=== PATIENT | male | born 1940 | race Caucasian/White ===

== ENCOUNTER 2017-11-24 14:35 | Emergency (ER) | payer MEDICARE ==
[2017-11-24] MEDS ORDERED: IPRATROPIUM/ALBUTEROL (0.5MG/3MG) NEB INH ONE (15:06)
--- NOTE | 2017-11-24 15:10 | Emergency Department Record ---
History of Present Illness - General Chief complaint: Cold Stated complaint: SINUS/CHEST CONGESTION,COUGH, Time Seen by Provider: 11/24/17 15:06 Source: Patient Mode of Arrival: Ambulatory Limitations: No limitations - History of Present Illness Initial comments: 77 yo male presents to ED for evaluation of cough and congestion symptoms for the past 1.5 weeks. Patient reports low-grade temperature yesterday, denies heart or lung problems at his baseline. Patient denies chest pain symptoms but does report "sore ribs from coughing". MD complaint: Other (cough) Onset/Timin -: Week(s) Severity: Moderate Quality: Aching Consistency: Constant Improves with: Cold therapy Worsens with: None Associated Symptoms: Cough, Rhinorrhea - Related Data Home Medications Medication Instructions Recorded Confirmed Last Taken Acetaminophen [Tylenol Arthritis] 650 mg PO DAILY 11/24/17 11/24/17 11/24/17 Amlodipine Besylate [Norvasc] 2.5 mg PO DAILY 11/24/17 11/24/17 11/24/17 Aspirin [Adult Aspirin Regimen] 81 mg PO DAILY 11/24/17 11/24/17 11/24/17 Cholecalciferol (Vitamin D3) 1,000 unit PO DAILY 11/24/17 11/24/17 11/24/17 [Vitamin D3] Clopidogrel Bisulfate [Clopidogrel] 75 mg PO DAILY 11/24/17 11/24/17 11/24/17 Guaifen/Phenyleph/Acetaminophn 1 tab PO ASDIR 11/24/17 11/24/17 11/24/17 [Tylenol Sinus Severe Caplet] Simvastatin [Zocor] 20 mg PO DAILY 11/24/17 11/24/17 11/23/17 Ursodiol [Mateo] 250 mg PO ASDIR 11/24/17 11/24/17 11/24/17 Allergies Allergy/AdvReac Type Severity Reaction Status Date / Time No Known Drug Allergies Allergy Verified 11/24/17 14:52 Travel Screening - Travel/Exposure Within Last 30 Days Have you traveled within the last 30 days?: No - Travel/Exposure Within Last Year Have you traveled outside the [place] in the last year?: No - Additonal Travel Details Have you been exposed to anyone with a communicable illness?: No - Travel Symptoms Symptom Screening: None Review of Systems Constitutional: Reports: Fever. Denies: Chills, Malaise, Night sweats Eyes: Denies: Eye discharge, Eye pain ENT: Reports: Congestion. Denies: Ear pain, Epistaxis Respiratory: Reports: Cough. Denies: Dyspnea Cardiovascular: Denies: Dyspnea on exertion, Edema, Palpitations Endocrine: Denies: Fatigue, Heat or cold intolerance Gastrointestinal: Denies: Abdominal pain, Nausea, Vomiting Genitourinary: Denies: Incontinence, Retention Musculoskeletal: Denies: Arthralgia, Back pain, Gout, Joint swelling Skin: Denies: Bruising, Change in color Neurological: Denies: Abnormal gait, Confusion, Headache, Seizure Psychiatric: Denies: Anxiety Hematological/Lymphatic: Denies: Anemia, Blood Clots Past Medical History - SOCIAL HISTORY Smoking Status: Never smoker Alcohol Use: None Drug Use: None - RESPIRATORY Hx Respiratory Disorders: No - CARDIOVASCULAR Hx Cardio Disorders: Yes Hx Cardiac Cath: Yes Hx Pacemaker/Defib: Yes - NEURO Hx Neuro Disorders: Yes Hx CVA: Yes (2006) - GI Hx GI Disorders: No - Hx Genitourinary Disorders: No - ENDOCRINE Hx Endocrine Disorders: No - MUSCULOSKELETAL Hx Musculoskeletal Disorders: Yes Hx Arthritis: Yes - PSYCH Hx Psych Problems: No - HEMATOLOGY/ONCOLOGY Hx Hematology/Oncology Disorders: No Family Medical History Any Significant Family History?: No Physical Exam - General General Appearance: Alert, Oriented x3, Cooperative, Moderate distress Limitations: No limitations - Head Head exam: Atraumatic, Normocephalic, Normal inspection Head exam detail: negative: Abrasion, Contusion, Chandler's sign, General tenderness, Hematoma, Laceration - Eye Eye exam: Normal appearance. negative: Conjunctival injection, Periorbital swelling, Periorbital tenderness, Scleral icterus - ENT Ear exam: negative: Auricular hematoma, Auricular trauma Nasal Exam: negative: Active bleeding, Discharge, Dried blood, Foreign body Mouth exam: negative: Drooling, Laceration, Muffled voice, Tongue elevation - Neck Neck exam: Normal inspection. negative: Meningismus, Tenderness - Respiratory Respiratory exam: Decreased breath sounds. negative: Respiratory distress, Rhonchi, Stridor - Cardiovascular Cardiovascular Exam: Regular rate, Normal rhythm, Normal heart sounds - GI/Abdominal GI/Abdominal exam: Soft. negative: Rebound, Rigid, Tenderness - Rectal Rectal exam: Deferred - exam: Deferred - Extremities Extremities exam: Normal inspection. negative: Pedal edema, Tenderness - Back Back exam: Denies: CVA tenderness (R), CVA tenderness (L) - Neurological Neurological exam: Alert, Normal gait, Oriented X3 - Psychiatric Psychiatric exam: Normal affect, Normal mood - Skin Skin exam: Normal color. negative: Abrasion Type of lesion: negative: abrasion Course Vital Signs 11/24/17 14:59 Temperature 97.6 F Pulse Rate 80 Respiratory 14 Rate Blood Pressure 102/48 Pulse Ox 91 L - Reevaluation(s) Reevaluation #1: 11/24/17 15:58 CXR: Findings suspicious for bilateral lower lobe infiltrates. Zithromax and Rocephin ordered for treatment of CAP. 11/24/17 19:04 Reevaluation #2: 11/24/17 18:51 Labs were reviewed, will initiate transfer to [facility] for further evaluation. Case was Dr. Gill, will accept transfer for further evaluation. Medical Decision Making - Lab Data Result diagrams: 11/24/17 14:15 11/24/17 14:15 Disposition Disposition: Transfer Clinical Impression: Hypoxia CAP (community acquired pneumonia) Qualifiers: Laterality: unspecified laterality Qualified Code(s): J18.9 - Pneumonia, unspecified organism CRF (chronic renal failure) Qualifiers: Chronic kidney disease stage: stage 4 (severe) Qualified Code(s): N18.4 - Chronic kidney disease, stage 4 (severe) Disposition: Acute Care Hospital Transfer Transfer To: [facility] Reason For Transfer: ARF, CAP Accepting Physician: Bridget Time Discussed w/Accepting Physician: 18:55 Condition: (2) Stable Time of Disposition: 18:55 Quality - Quality Measures Quality Measures: N/A - Blood Pressure Screening Does Patient Have Any of the Following: Active Dx of HTN Blood Pressure Classification: Normal BP Reading Systolic Measurement: 104 Diastolic Measurement: 56 Screening for High Blood Pressure: Patient Exclusion, Hx of HTN [G9744]
[2017-11-24] MEDS ORDERED: CEFTRIAXONE SODIUM 1 GM in 0.9 % SODIUM CHLORIDE 100ML 100 ML IVPB ONE (15:55)
[2017-11-24] MEDS ORDERED: AZITHROMYCIN 500 MG in 0.9 % SODIUM CHLORIDE 250ML 250 ML IVPB ONE (15:55)
[2017-11-24] MEDS ORDERED: 0.9 % SODIUM CHLORIDE 1000ML 1,000 ML IV SCH (16:00)
[2017-11-24 16:33] LABS: BASO % 0.3 % (0-6); EOS % 0.3 % (0-6); HEMATOCRIT 39.8 % (42.0-52.0); LYMPH % 7.7 % (16-45); MEAN CELL VOLUME 91.1 fl (81-97); MEAN CORPUSCULAR HEMOGLOBIN 29.7 pg (27-33); MEAN CORPUSCULAR HGB CONC 32.7 g/dl (32-36); MEAN PLATELET VOLUME 12.6 fl (7.4-10.4); MONO % 5.7 % (0-9); RED BLOOD COUNT 4.37 M/uL (4.40-5.70); RED CELL DISTRIBUTION WIDTH 15.1 % (11.5-14.5); WHITE BLOOD COUNT W/O DIFF 11.8 K/uL (4.2-12.2)
[2017-11-24 16:42] LABS: BILIRUBIN,TOTAL 0.6 mg/dL (0.2-1.0); CREATININE 4.3 mg/dL (0.7-1.2)
[2017-11-24 16:43] LABS: TOTAL PROTEIN 8.5 g/dL (6.6-8.7)
[2017-11-24] MEDS ORDERED: URSODIOL 250 MG PO SCH (16:47)
[2017-11-24] MEDS ORDERED: IPRATROPIUM/ALBUTEROL (0.5MG/3MG) NEB INH PRN (16:47)
[2017-11-24] MEDS ORDERED: PROMETHAZINE W/CODEINE 10ML UD PO PRN (16:47)
[2017-11-24] MEDS ORDERED: ALBUTEROL SULFATE (0.083%) 2.5 MG/3 ML NEB INH PRN (16:47)
[2017-11-24] MEDS ORDERED: ACETAMINOPHEN 500 MG TABLET PO PRN (16:47)
[2017-11-24 16:48] LABS: ALB/GLOB RATIO 0.5 (1.1-1.8)
[2017-11-24] MEDS: AZITHROMYCIN 500 MG in 0.9 % SODIUM CHLORIDE 250ML 250 ML IVPB SCH ×2 (17:19→18:43)
[2017-11-24 17:53] LABS: PLATELET COUNT 85 K/uL (130-400)
[2017-11-25] MEDS ORDERED: SIMVASTATIN 20 MG TABLET PO SCH (10:00)
[2017-11-25] MEDS ORDERED: ACETAMINOPHEN 325 MG TAB PO SCH (10:00)
[2017-11-25] MEDS ORDERED: AMLODIPINE BESYLATE 5MG TAB PO SCH (10:00)
[2017-11-25] MEDS ORDERED: CLOPIDOGREL 75MG TABLET PO SCH (10:00)
[2017-11-25] MEDS ORDERED: ASPIRIN 81 MG TABEC PO SCH (10:00)
[2017-11-25] MEDS ORDERED: CEFTRIAXONE SODIUM 1 GM in 0.9 % SODIUM CHLORIDE 100ML 100 ML IVPB SCH (16:00)
--- NOTE | 2017-11-26 03:36 | RADIOLOGY REPORT ---
DATE: 11/24/2017. EXAM: TWO VIEWS OF THE CHEST. HISTORY: The patient has a cough. TECHNIQUE: Two views of the chest were provided without comparison examination. FINDINGS: The cardiomediastinal silhouette is within normal limits for size and contour. Mild to moderate dextroconvex scoliosis of the thoracic spine is noted. The left anterior chest wall pacemaker is identified with the lead tips entering the left subclavian vein and terminating in the region of the right atrium and right ventricle. Bilateral lower lobe interstitial infiltrates are suspected. No pleural effusions are identified. No pneumothorax is noted. IMPRESSION: FINDINGS SUSPICIOUS FOR BILATERAL LOWER LOBE INTERSTITIAL INFILTRATES. FOLLOWUP PA AND LATERAL VIEW OF THE CHEST CAN BE OBTAINED UNTIL RESOLUTION OF FINDINGS. JOB NUMBER: [id number] MTDD
== END 2017-11-24 20:30 | disposition short-term general hospital (02) ==
LOC: ER 14:35 → UNDOADMOB 16:45 → MEDSURG 16:45 → UNDODISOB 20:30 → ER 20:30
DX: J18.9 Pneumonia, unspecified organism (principal); N18.4 Chronic kidney disease, stage 4 (severe); Z95.0 Presence of cardiac pacemaker; E78.00 Pure hypercholesterolemia, unspecified; I25.10 Atherosclerotic heart disease of native coronary artery without angina pectoris; Z86.73 Personal history of transient ischemic attack (TIA), and cerebral infarction without residual deficits
CPT/HCPCS: 93041; 99285 ×2; 96365; 83605; 80053; 85027; 71020; 94640 ×2; 94760; G0378; J0456; J7030; J7050

== ENCOUNTER 2018-11-30 15:13 | Emergency (ER) | payer MEDICARE ==
--- NOTE | 2018-11-30 17:26 | Emergency Department Record ---
History of Present Illness - General Chief complaint: Male Urogenital Problem Stated complaint: LT SIDE GROIN PAIN Time Seen by Provider: 11/30/18 17:21 Source: Patient, Family Mode of Arrival: Ambulatory Limitations: No limitations - History of Present Illness Initial comments: 78 yo male presents to ED for evaluation of left sided groin pain symptoms that began several weeks ago. Patient denies known injury or strain to the area, denies numbness, tingling, or swelling of the area. Patient denies erythema to the area, denies lower extremity weakness or numbness symptoms. Patient does report a history of HTN and s/p AAA repair 1 year ago. MD Complaint: Other Onset/Timin -: Week(s) Location: Left inguinal region Radiation: LLQ Severity scale (1-10): 3 Consistency: Intermittent Improves with: None Worsens with: None Reports: Denies other symptoms - Related Data Home Medications Medication Instructions Recorded Confirmed Last Taken Warfarin Sodium 3 mg PO ASDIR 11/30/18 11/30/18 11/30/18 Allergies Allergy/AdvReac Type Severity Reaction Status Date / Time No Known Drug Allergies Allergy Verified 11/30/18 16:37 Travel Screening - Travel/Exposure Within Last 30 Days Have you traveled within the last 30 days?: No - Travel/Exposure Within Last Year Have you traveled outside the [place] in the last year?: No - Additonal Travel Details Have you been exposed to anyone with a communicable illness?: No - Travel Symptoms Symptom Screening: None Review of Systems Constitutional: Denies: Chills, Fever, Malaise, Night sweats Eyes: Denies: Eye discharge, Eye pain ENT: Denies: Congestion, Ear pain, Epistaxis Respiratory: Denies: Cough, Dyspnea, Hemoptysis Cardiovascular: Denies: Chest pain, Dyspnea on exertion Endocrine: Denies: Fatigue, Heat or cold intolerance Gastrointestinal: Denies: Abdominal pain, Nausea, Vomiting Genitourinary: Reports: Other (Groin pain). Denies: Incontinence, Retention Musculoskeletal: Denies: Arthralgia, Back pain Skin: Denies: Bruising, Change in color Neurological: Denies: Abnormal gait, Confusion, Headache, Tingling, Tremors Psychiatric: Denies: Anxiety Hematological/Lymphatic: Reports: Easy bleeding, Easy bruising. Denies: Anemia , Blood Clots Past Medical History - SOCIAL HISTORY Smoking Status: Never smoker Alcohol Use: None Drug Use: None - RESPIRATORY Hx Respiratory Disorders: No Comment:: Pneumonia in the past - CARDIOVASCULAR Hx Cardio Disorders: Yes Hx Cardiac Cath: Yes Hx Pacemaker/Defib: Yes - NEURO Hx Neuro Disorders: Yes Hx CVA: Yes (2006) - GI Hx GI Disorders: No - Hx Genitourinary Disorders: No Comment:: dark urine noted today - ENDOCRINE Hx Endocrine Disorders: No Hx Diabetes: No Hx Thyroid Disease: No - MUSCULOSKELETAL Hx Musculoskeletal Disorders: Yes Hx Arthritis: Yes - PSYCH Hx Psych Problems: No - HEMATOLOGY/ONCOLOGY Hx Hematology/Oncology Disorders: No Family Medical History Any Significant Family History?: Yes Hx Heart Disease: Father, Mother Physical Exam - General General Appearance: Alert, Oriented x3, Cooperative, Mild distress Limitations: No limitations - Head Head exam: Atraumatic, Normocephalic, Normal inspection Head exam detail: negative: Abrasion, Contusion, Chandler's sign, General tenderness, Hematoma, Laceration - Eye Eye exam: Normal appearance. negative: Conjunctival injection, Periorbital swelling, Periorbital tenderness, Scleral icterus - ENT Ear exam: negative: Auricular hematoma, Auricular trauma Nasal Exam: negative: Active bleeding, Discharge, Dried blood, Foreign body Mouth exam: negative: Drooling, Laceration, Muffled voice, Tongue elevation - Neck Neck exam: Normal inspection. negative: Tenderness, Thyromegaly - Respiratory Respiratory exam: Normal lung sounds bilaterally. negative: Respiratory distress, Rhonchi, Stridor, Wheezes - Cardiovascular Cardiovascular Exam: Regular rate, Normal rhythm, Normal heart sounds Peripheral Pulses: 3+: Dorsalis Pedis (R), Dorsalis Pedis (L) - GI/Abdominal GI/Abdominal exam: Soft. negative: Rebound, Rigid, Tenderness - Rectal Rectal exam: Deferred - exam: Deferred, Other (MIld TTP to the left inguinal region on examination, no evidence for hernia or lymphadenopathy is present, post-scars are present to both inguinal regions) - Extremities Extremities exam: negative: Calf tenderness, Pedal edema, Tenderness - Back Back exam: Denies: CVA tenderness (R), CVA tenderness (L) - Neurological Neurological exam: Alert, Normal gait, Oriented X3 - Psychiatric Psychiatric exam: Normal affect, Normal mood - Skin Skin exam: Normal color. negative: Abrasion Type of lesion: negative: abrasion Course Vital Signs 12/30/18 16:42 Temperature 97.8 F Pulse Rate 88 Respiratory 16 Rate Blood Pressure 160/89 Pulse Ox 98 - Reevaluation(s) Reevaluation #1: 11/30/18 19:50 Laboratory studies were reviewed: Hgb 11.0 (previous 12.0 1 year ago) Platelets 60 (down from 85) Albumin 2.6. GFR 48, previous 14. INR 1.5. Laboratory studies are grossly unremarkable for an acute process. Patient is now returned from CT. Reevaluation #2: 11/30/18 20:04 CT Abdomen and Pelvis: Moderate ascites Cirrhosis Splenomegaly Patient and his daughter was updated on all results, daughter reports that the patient's cirrhosis and ascites are chronic. There is no acute process identified in the LLQ or left groin region. We did discuss transfer to [facility] for further evaluation, however both the patient and his daughter report that they would rather go home as the patient's laboratory and CT findings are chronic in nature. Will have the patient's BUN/Creatinine re-drawn in 48 hours as well. Patient appears stable for discharge at this time. Medical Decision Making - Lab Data Result diagrams: 11/30/18 18:30 11/30/18 18:30 Disposition Disposition: Discharge Clinical Impression: Thrombocytopenia, Hypoalbuminemia Anemia Qualifiers: Anemia type: unspecified type Qualified Code(s): D64.9 - Anemia, unspecified Ascites Qualifiers: Ascites type: other type Qualified Code(s): R18.8 - Other ascites Cirrhosis Qualifiers: Hepatic cirrhosis type: unspecified hepatic cirrhosis Ascites presence: with ascites Qualified Code(s): K74.60 - Unspecified cirrhosis of liver; R18.8 - Other ascites Disposition: Home, Self-Care Condition: (2) Stable Instructions: Cirrhosis (ED) Additional Instructions: Return to ED if your symptoms worsen or if you have any concerns. Follow-up with your family doctor in 3-5 days as directed. Repeat GFR/BUN/Creatine in 48 hours, results to Located within [facility]. Forms: Patient Portal Access Time of Disposition: 19:57 Quality - Quality Measures Quality Measures: N/A - Blood Pressure Screening Does Patient Have Any of the Following: Active Dx of HTN Blood Pressure Classification: Pre-Hypertensive BP Reading Systolic Measurement: 160 Diastolic Measurement: 89 Screening for High Blood Pressure: Patient Exclusion, Hx of HTN [G9744]
[2018-11-30 18:43] LABS: BASO % 0.6 % (0-6); GRAN % 64.1 % (47-80); HEMATOCRIT 34.7 % (42.0-52.0); LYMPH % 16.9 % (16-45); MEAN CORPUSCULAR HGB CONC 31.7 g/dl (32-36); MEAN PLATELET VOLUME 10.3 fl (7.4-10.4); MONO % 15.4 % (0-9); PLATELET COUNT 60 K/uL (130-400); RED BLOOD COUNT 3.54 M/uL (4.40-5.70); WHITE BLOOD COUNT W/O DIFF 4.7 K/uL (4.2-12.2)
[2018-11-30 18:53] LABS: INR 1.5
[2018-11-30 18:57] LABS: BILIRUBIN,TOTAL 1.1 mg/dL (0.2-1.0); CREATININE 1.5 mg/dL (0.7-1.2); TOTAL PROTEIN 7.7 g/dL (6.6-8.7)
[2018-11-30 19:02] LABS: ALB/GLOB RATIO 0.5 (1.1-1.8); ALBUMIN 2.6 g/dL (4.0-5.0)
[2018-11-30 19:03] LABS: URINE APPEARANCE SL CLOUDY; URINE BILIRUBIN NEGATIVE (NEGATIVE); URINE BLOOD NEGATIVE (NEGATIVE); URINE COLOR ORANGE; URINE GLUCOSE (UA) NEGATIVE (NEGATIVE); URINE KETONE NEGATIVE (NEGATIVE); URINE LEUKOCYTE ESTERASE NEGATIVE (NEGATIVE); URINE NITRITE NEGATIVE (NEGATIVE); URINE PROTEIN NEGATIVE (NEGATIVE)
[2018-11-30] MEDS ORDERED: 0.9 % SODIUM CHLORIDE 1000ML 500 ML IV SCH (19:15)
--- NOTE | 2018-11-30 23:37 | CT SCAN REPORT ---
EXAM: CT SCAN ABDOMEN/PELVIS W CONTRAST HISTORY: ABDOMINAL PAIN. TECHNIQUE: Sequential axial images were obtained from the diaphragms through the ischiorectal fossa after intravenous administration of 100 mL of Omnipaque- 300 contrast material. Sagittal and coronal reformatted images were performed. FINDINGS: The visualized lung bases appear normal. The heart and pericardium appears normal. There is a cirrhotic liver present. There is a moderate amount of abdominal ascites. Mild splenomegaly. Gallbladder appears grossly normal. No ductal dilatation. Pancreas appears normal. The adrenal glands and kidneys appear normal. There is mild right renal atrophy. Patient is status post abdominal aortobiiliac stent graft repair. Sigmoid colon diverticulosis without definitive evidence of diverticulitis. Urinary bladder appears normal. The osseous structures are normal. IMPRESSION: 1. MODERATE AMOUNT OF ABDOMINAL ASCITES PRESENT. CIRRHOTIC LIVER WITH MILD SPLENOMEGALY. 2. POST-OP ABDOMINAL AORTOBIILIAC STENT GRAFT REPAIR. JOB NUMBER: [id number] MTDD
== END 2018-11-30 20:28 | disposition home or self-care (01) ==
LOC: ER 15:13
DX: D69.6 Thrombocytopenia, unspecified (principal); K74.69 Other cirrhosis of liver; E88.09 Other disorders of plasma-protein metabolism, not elsewhere classified; D64.9 Anemia, unspecified; R18.8 Other ascites; I10 Essential (primary) hypertension
CPT/HCPCS: 99284 ×2; 96360; 85025; 85610; 80053; 81003; 74177; Q9967; J7030

== ENCOUNTER 2019-05-17 09:17 | Emergency (ER) | payer MEDICARE ==
--- NOTE | 2019-05-17 09:48 | Emergency Department Record ---
History of Present Illness - General Chief complaint: Extremity Problem Stated complaint: BLEEDING AT SURGERY SITE Time Seen by Provider: 05/17/19 09:29 Source: Patient Mode of Arrival: Ambulatory Limitations: No limitations - History of Present Illness Initial comments: The patient is here due to bleeding from his R groin heart cath site this AM a few hours ago. He denies any pain or discomfort. The patient did have a heart catheter procedure 3 days ago at [facility] and had a Watchman Procedure performed. He had been well until this AM. The patient is on Warfarin and had been on Plavix but that was stopped 9 days ago. Complaint: Other Onset/Timin -: Hour(s) Location: Right, Thigh, Other Quality: Aching Consistency: Constant Improves with: Nothing Worsens with: Nothing - Related Data Home Medications Medication Instructions Recorded Confirmed Last Taken Atorvastatin Calcium [Lipitor] 40 mg PO DAILY 05/17/19 05/17/19 05/16/19 Carvedilol [Coreg] 6.25 mg PO DAILY 05/17/19 05/17/19 05/16/19 Ferrous Sulfate [Iron] 325 mg PO DAILY 05/17/19 05/17/19 05/16/19 Furosemide [Lasix] 40 mg PO DAILY 05/17/19 05/17/19 05/16/19 Multivitamin [Daily Multiple 1 each PO DAILY 05/17/19 05/17/19 05/16/19 Vitamin] Pantoprazole Sodium [Protonix] 40 mg PO DAILY 05/17/19 05/17/19 05/16/19 Spironolactone [Aldactone] 25 mg PO DAILY 05/17/19 05/17/19 05/16/19 Allergies Allergy/AdvReac Type Severity Reaction Status Date / Time No Known Drug Allergies Allergy Verified 05/17/19 09:53 Travel Screening - Travel/Exposure Within Last 30 Days Have you traveled within the last 30 days?: No - Travel/Exposure Within Last Year Have you traveled outside the [place] in the last year?: No - Additonal Travel Details Have you been exposed to anyone with a communicable illness?: No - Travel Symptoms Symptom Screening: None Review of Systems Constitutional: Denies: Chills, Fever Eyes: Denies: Eye discharge ENT: Denies: Congestion Respiratory: Denies: Cough, Dyspnea Past Medical History - SOCIAL HISTORY Smoking Status: Never smoker Alcohol Use: None Drug Use: None - RESPIRATORY Hx Respiratory Disorders: No Comment:: Pneumonia in the past - CARDIOVASCULAR Hx Cardio Disorders: Yes Hx Cardiac Cath: Yes Hx Pacemaker/Defib: Yes - NEURO Hx Neuro Disorders: Yes Hx CVA: Yes (2006) - GI Hx GI Disorders: No - Hx Genitourinary Disorders: No Comment:: dark urine noted today - ENDOCRINE Hx Endocrine Disorders: No Hx Diabetes: No Hx Thyroid Disease: No - MUSCULOSKELETAL Hx Musculoskeletal Disorders: Yes Hx Arthritis: Yes - PSYCH Hx Psych Problems: No - HEMATOLOGY/ONCOLOGY Hx Hematology/Oncology Disorders: No Family Medical History Any Significant Family History?: No Hx Heart Disease: Father, Mother Physical Exam - General General Appearance: Alert, Oriented x3, Cooperative, No acute distress - Head Head exam: Atraumatic, Normocephalic - Eye Eye exam: Normal appearance, PERRL - Neck Neck exam: Normal inspection, Full ROM. negative: Tenderness - Respiratory Respiratory exam: Normal lung sounds bilaterally. negative: Respiratory distress - Cardiovascular Cardiovascular Exam: Irregular rhythm. negative: Regular rate, Normal rhythm, Normal heart sounds - GI/Abdominal GI/Abdominal exam: Soft, Normal bowel sounds. negative: Rebound, Rigid, Tenderness - Extremities Extremities exam: Normal inspection, Full ROM, Normal capillary refill, Other (There is minimal bleeding from the R groin catheter site. There is no pulsatile mass or bleeding presently.). negative: Tenderness Course Vital Signs 05/17/19 09:22 Temperature 97.6 F Pulse Rate 109 H Respiratory 16 Rate Blood Pressure 141/66 Pulse Ox 99 - Reevaluation(s) Reevaluation #1: The patient is doing very well at this time. He has had no bleeding here in the ER. I did discuss the need for a R groin arterial study to R/O pseudoaneurysm and since we are not able to perform that test he will need to be transferred to another hospital. The patient would like to go to [facility] and not [facility] so I did discuss the test with Dr. Prasad in the ER at [facility] and he did accept the patient in transfer. 05/17/19 10:18 Medical Decision Making - Lab Data Result diagrams: 05/17/19 09:46 05/17/19 09:46 Disposition Disposition: Discharge Clinical Impression: Post-op bleeding Qualifiers: Surgical complication system/body Area: subcutaneous tissue Disposition: Acute Care Hospital Transfer Transfer To: [facility] Reason For Transfer: Ultrasound Accepting Physician: Osmar Time Discussed w/Accepting Physician: 10:21 Condition: (2) Stable Instructions: Postoperative Bleeding (ED) Additional Instructions: Please proceed directly to the ER at [facility] for the arterial testing. Forms: Patient Portal Access Time of Disposition: 10:21 Quality - Quality Measures Quality Measures: N/A - Blood Pressure Screening View Details: Yes Does Patient Have Any of the Following: No Blood Pressure Classification: Hypertensive Reading Systolic Measurement: 141 Diastolic Measurement: 66 Screening for High Blood Pressure: < First Hypertensive BP, F/U Documented > [G8950] First Hypertensive Follow-up Interventions: Referral to alternative/primary care provider.
[2019-05-17 09:54] LABS: ABSOLUTE NEUTROPHIL COUNT 2.77; HEMATOCRIT 30.3 % (42.0-52.0); HEMOGLOBIN 9.2 gm/dl (14.0-18.0); MEAN CELL VOLUME 103.1 fl (81-97); MEAN CORPUSCULAR HGB CONC 30.4 g/dl (32-36); MEAN PLATELET VOLUME 10.3 fl (7.4-10.4); PLATELET COUNT 68 K/uL (130-400); RED BLOOD COUNT 2.94 M/uL (4.40-5.70); RED CELL DISTRIBUTION WIDTH 15.4 % (11.5-14.5); WHITE BLOOD COUNT W/O DIFF 4.4 K/uL (4.2-12.2)
[2019-05-17 09:55] LABS: MEAN CORPUSCULAR HEMOGLOBIN 31.2 pg (27-33)
[2019-05-17 10:02] LABS: CREATININE 1.4 mg/dL (0.7-1.2)
[2019-05-17 10:03] LABS: HYPOCHROMIA 1+; PLATELET ESTIMATE DECREASED (NORMAL)
[2019-05-17 10:06] LABS: INR 1.9; PARTIAL THROMBOPLASTIN TIME 37.4 SECONDS (24.5-39.1); PROTHROMBIN TIME (PATIENT) 18.7 SECONDS (9.5-12.1)
== END 2019-05-17 10:39 | disposition short-term general hospital (02) ==
LOC: ER 09:17
DX: L76.22 Postprocedural hemorrhage of skin and subcutaneous tissue following other procedure (principal); Y84.0 Cardiac catheterization as the cause of abnormal reaction of the patient, or of later complication, without mention of misadventure at the time of the procedure; Y71.3 Surgical instruments, materials and cardiovascular devices (including sutures) associated with adverse incidents; Z79.01 Long term (current) use of anticoagulants; Z95.0 Presence of cardiac pacemaker; Z86.73 Personal history of transient ischemic attack (TIA), and cerebral infarction without residual deficits
CPT/HCPCS: 80048; 85027; 85610; 85730; 99284